=== PATIENT | male | born 1975 | race Caucasian/White ===

== ENCOUNTER 2016-09-11 11:30 | Emergency (ER) | payer OTHER ==
[~2016-09-11] VITALS: Ht 182.9 cm; Wt 100.0 kg
[~2016-09-11 11:30] MED LIST: CIPR500T4 PO; DOCU1CAP39 PO; KETO10 PO; PERC5TAB12 PO; TAMS0.4C67 PO
[2016-09-11 11:31] VITALS: BP 236/144; PULSE 89; RESP 15; TEMP 98; O2SAT 99
[2016-09-11 12:04] VITALS: BP 200/125; PULSE 95; RESP 18; O2SAT 97
[2016-09-11] MEDS ORDERED: SODIUM CHLOR 0.9% 1000 ML INJ 1,000 ML IV ONE (12:11)
[2016-09-11] MEDS ORDERED: PROCHLORPERAZINE INJ 10 MG/2 ML VIAL IVP ONE (12:15)
[2016-09-11] MEDS ORDERED: SODIUM CHLORIDE 0.9% FLUSH 10 ML FLUSH IVF PRN (12:15)
[2016-09-11] MEDS ORDERED: diphenhydrAMINE HCL 50 MG/ML VIAL IVP ONE (12:15)
--- NOTE | 2016-09-11 12:16 | PD ---
HPI Chief Complaint: Hypertension Time Seen by Provider: 12:12 Travel History International Travel<30 days: No Contact w/Intl Traveler<30days: No Traveled to known affect area: No History of Present Illness HPI 40-year-old male presents to the emergency department for evaluation of headache that started on Sunday. He states this started and gradually worsened. He does report associated photophobia, but not photophobia. Patient currently rates headaches is/10. He states he has taken ibuprofen at home for the headache, was not taking anything today. Patient denies any weakness. No chest pain or shortness of breath. No abdominal pain. No nausea, vomiting, diarrhea. She denies history of headaches. He states he has had hypertension in the past, but does not follow up with a physician. Patient states had hypertension approximately 10 years ago when he went to his primary care physician's office, but has not been back and does not take any medications. Patient denies any visual changes. No dizziness or syncope. PFSH Past Medical History Cancer: No Cardiovascular Problems: Yes Diverticulitis: Yes Endocrine: No Gastrointestinal Disorders: Yes (DIVERTICULITIS) Genitourinary: Yes Hypertension: Yes Immune Disorder: No Inguinal Hernia: Yes (surg repair) Kidney Stones: Yes Musculoskeletal: No Neurologic: No Psychiatric: No Reproductive: No Respiratory: No Past Surgical History Abdominal Surgery: Yes (HERNIA REPAIR) Other Surgery: Yes (RIGHT THUMB) Social History Alcohol Use: Yes (most days, few beers) Tobacco Use: Yes (1.5 PPD) Substance Use: No Allergies-Medications (Allergen,Severity, Reaction): Coded Allergies: No Known Allergies (Unverified , 09/11/16) Reported Meds & Prescriptions Reported Meds & Active Scripts Active Amlodipine (Amlodipine Besylate) 10 Mg Tab 10 Mg PO DAILY Review of Systems Except as stated in HPI: all other systems reviewed are Neg Physical Exam Narrative GENERAL: Well-nourished, well-developed male patient, afebrile. SKIN: Focused skin assessment warm/dry. HEAD: Normocephalic. Atraumatic. EYES: No scleral icterus. No injection or drainage. NECK: Supple, trachea midline. No JVD or lymphadenopathy. CARDIOVASCULAR: Regular rate and rhythm without murmurs, gallops, or rubs. RESPIRATORY: Breath sounds equal bilaterally. No accessory muscle use. Lungs sounds are clear to auscultation GASTROINTESTINAL: Abdomen soft, non-tender, nondistended. MUSCULOSKELETAL: No cyanosis, or edema. Bilateral upper and lower extremity strength 5/5. All extremities are neurovascularly intact. BACK: Nontender without obvious deformity. No CVA tenderness. NEUROLOGICAL: Awake and alert. Cranial nerves II through XII intact. Motor and sensory grossly within normal limits. Five out of 5 muscle strength in all muscle groups. Normal speech. Finger to nose is normal bilaterally. Heel-to- [place] is normal bilaterally. Data Data Last Documented VS Vital Signs Date Time Temp Pulse Resp B/P Pulse Ox O2 Delivery O2 Flow Rate FiO2 09/11/16 13:14 65 18 170/111 99 Room Air 09/11/16 11:31 98.0 Orders Electrocardiogram (09/11/16 ) Complete Blood Count With Diff (09/11/16 12:11) Basic Metabolic Panel (Bmp) (09/11/16 12:11) Ct Brain W/O Iv Contrast(Rout) (09/11/16 12:11) Ecg Monitoring (09/11/16 12:11) Iv Access Insert/Monitor (09/11/16 12:11) Oximetry (09/11/16 12:11) Sodium Chloride 0.9% Flush (Ns Flush) (09/11/16 12:15) Prochlorperazine Inj (Compazine Inj) (09/11/16 12:15) Diphenhydramine Inj (Benadryl Inj) (09/11/16 12:15) Sodium Chlor 0.9% 1000 Ml Inj (Ns 1000 M (09/11/16 12:11) Hydralazine Inj (Apresoline Inj) (09/11/16 13:00) Labs Laboratory Tests Test 09/11/16 12:27 White Blood Count 8.8 TH/MM3 Red Blood Count 5.51 MIL/MM3 Hemoglobin 17.0 GM/DL Hematocrit 50.2 % Mean Corpuscular Volume 91.1 FL Mean Corpuscular Hemoglobin 30.8 PG Mean Corpuscular Hemoglobin 33.9 % Concent Red Cell Distribution Width 13.1 % Platelet Count 212 TH/MM3 Mean Platelet Volume 8.5 FL Neutrophils (%) (Auto) 63.6 % Lymphocytes (%) (Auto) 29.3 % Monocytes (%) (Auto) 5.4 % Eosinophils (%) (Auto) 0.3 % Basophils (%) (Auto) 1.4 % Neutrophils # (Auto) 5.6 TH/MM3 Lymphocytes # (Auto) 2.6 TH/MM3 Monocytes # (Auto) 0.5 TH/MM3 Eosinophils # (Auto) 0.0 TH/MM3 Basophils # (Auto) 0.1 TH/MM3 CBC Comment DIFF FINAL Differential Comment Sodium Level 139 MEQ/L Potassium Level 4.0 MEQ/L Chloride Level 106 MEQ/L Carbon Dioxide Level 26.7 MEQ/L Anion Gap 6 MEQ/L Blood Urea Nitrogen 12 MG/DL Creatinine 1.07 MG/DL Estimat Glomerular Filtration 76 ML/MIN Rate Random Glucose 89 MG/DL Calcium Level 8.9 MG/DL MDM Medical Decision Making Medical Screen Exam Complete: Yes Emergency Medical Condition: Yes Medical Record Reviewed: Yes Interpretation(s) CT brain - CONCLUSION: Normal examination for a patient of this age. Differential Diagnosis Migraine headache versus cluster headache versus intracranial headache versus hypertension versus intracranial abnormality Narrative Course 40-year-old male presents to the emergency department for evaluation of headache that started on Sunday. He is also found to be hypertensive in the emergency department. EKG, CBC, BMP are ordered and pending. CT of the brain is ordered and pending. Patient is given normal saline 1 L IV bolus, Compazine 10 mg IV, Benadryl 25 mg IV. EKG shows sinus bradycardia, HR 59, no acute ST changes. CBC is unremarkable. BMP shows no acute abnormality. CT of the brain is normal. Patient's blood pressure remains elevated. Patient is given hydralazine 10 mg IV. Blood pressure recheck is 168/99. My attending physician, Dr. Rosales, is aware of all findings and agrees with plan and disposition. Patient will be discharged prescription for amlodipine for blood pressure. He is to follow-up with his primary care physician. His friend at bedside states that he will do so. Patient is stable for discharge home. He is to return for any acute worsening of symptoms. The patient was discharged in stable condition with instructions, including return instructions and follow up instructions. Diagnosis Primary Impression: Hypertension Qualified Code: I10 - Essential hypertension Additional Impression: Headache Qualified Code: R51 - Acute nonintractable headache, unspecified headache type Referrals: Primary Care Physician 2 days Patient Instructions: Acute Headache (ED), General Instructions, Hypertension ( ED) Additional Instructions: Take amlodipine as directed daily for blood pressure. Follow up with your primary care physician. Return to the emergency department for any acute, worsening of symptoms. Med/Other Pt SpecificInfo: Prescription(s) given Scripts Amlodipine 10 Mg Tab10 Mg PO DAILY #30 TAB Ref 0 Prov:Ghazala Russell 09/11/16 Disposition: 01 DISCHARGE HOME Condition: Stable Ghazala Russell Sep 11, 2016 12:16
--- NOTE | 2016-09-11 12:31 | RADRPT ---
EXAM DATE/TIME: 09/11/2016 12:20 [facility] COMPARISON: No previous studies available for comparison. INDICATIONS : Headache for one week. Bilateral tingling foot sensation. RADIATION DOSE: 56.38 CTDIvol (mGy) MEDICAL HISTORY : Hypertension. SURGICAL HISTORY : None. ENCOUNTER: Initial ACUITY: 1 day PAIN SCALE: 4/10 LOCATION: cranial TECHNIQUE: Multiple contiguous axial images were obtained of the head. Using automated exposure control and adj ustment of the mA and/or kV according to patient size, radiation dose was kept as low as reasonably a chievable to obtain optimal diagnostic quality images. DICOM format image data is available electro nically for review and comparison. FINDINGS: CEREBRUM: The ventricles are normal for age. No evidence of midline shift, mass lesion, hemorrhage or acute in farction. No extra-axial fluid collections are seen. POSTERIOR FOSSA: The cerebellum and brainstem are intact. The 4th ventricle is midline. The cerebellopontine angle i s unremarkable. EXTRACRANIAL: The visualized portion of the orbits is intact. SKULL: The calvaria is intact. No evidence of skull fracture. CONCLUSION: Normal examination for a patient of this age. Jhony Espinosa MD on September 11, 2016 at 12:28 Board Certified Radiologist. This report was verified electronically.
[2016-09-11 12:39] LABS: AUTOMATED NEUTROPHIL # 5.6 TH/MM3 (1.8-7.7); BASOPHIL # 0.1 TH/MM3 (0-0.2); BASOPHIL % 1.4 % (0.0-2.0); EOSINOPHIL % 0.3 % (0.0-4.0); HEMATOCRIT 50.2 % (39.0-51.0); HEMO FLAGS DIFF FINAL; LYMPH % 29.3 % (9.0-44.0); LYMPHOCYTE # 2.6 TH/MM3 (1.0-4.8); MEAN CELL VOLUME 91.1 FL (80.0-100.0); MEAN CORPUSCULAR HEMOGLOBIN 30.8 PG (27.0-34.0); MEAN CORPUSCULAR HGB CONC 33.9 % (32.0-36.0); MONO % 5.4 % (0.0-8.0); NEUT % 63.6 % (16.0-70.0); PLATELET COUNT 212 TH/MM3 (150-450); RED BLOOD COUNT 5.51 MIL/MM3 (4.50-5.90); RED CELL DISTRIBUTION WIDTH 13.1 % (11.6-17.2); WHITE BLOOD COUNT 8.8 TH/MM3 (4.0-11.0)
[2016-09-11 12:51] LABS: BICARBONATE 26.7 MEQ/L (21.0-32.0)
[2016-09-11] MEDS ORDERED: hydrALAZINE HCL 20 MG/ML VIAL IV PUSH ONE (13:00)
[2016-09-11 13:14] VITALS: BP 170/111; PULSE 65; RESP 18; O2SAT 99
[2016-09-11 13:20] VITALS: BP 168/99; PULSE 72; RESP 18; O2SAT 99
[2016-09-11] MEDS ORDERED: AMLO10TA2 PO (13:23)
--- NOTE | 2016-09-12 13:31 | EKG ---
Date Performed: 09/11/2016 Time Performed: 12:47:18 PTAGE: 40 years EKG: SINUS BRADYCARDIA WITH SINUS ARRHYTHMIA NONSPECIFIC T-WAVE ABNORMALITY BORDERLINE ECG NO PREVIOUS TRACING DOCTOR: Pee Lozada Interpretating Date/Time 09/12/2016 13:24:13
== END 2016-09-11 14:01 | disposition home or self-care (01) ==
LOC: NEPE 11:30
DX: I10 Essential (primary) hypertension (principal); F17.210 Nicotine dependence, cigarettes, uncomplicated; R94.31 Abnormal electrocardiogram [ECG] [EKG]
CPT/HCPCS: 70450; 80048; 85025; 93005; 96374; 96375; 99285; J0360; J0780; J1200; J7030

== ENCOUNTER 2017-01-25 19:46 | Emergency (ER) | payer OTHER ==
[~2017-01-25] VITALS: Ht 182.9 cm; Wt 110.0 kg
[~2017-01-25 19:46] MED LIST changes: +AMLO10TA2 PO; -CIPR500T4 PO; -DOCU1CAP39 PO; -KETO10 PO; -PERC5TAB12 PO; -TAMS0.4C67 PO
[2017-01-25 19:48] VITALS: BP 192/121; PULSE 79; RESP 16; TEMP 97.9; O2SAT 99
[2017-01-25] MEDS ORDERED: LIDOCAINE 2%/EPINEPHrine 1:100,000 20ML MDV NERV BLOCK ONE (20:15)
[2017-01-25] MEDS ORDERED: TETANUS/DIPHTHERIA TOXOID ADULT 0.5 ML VIAL IM ONE (20:15)
--- NOTE | 2017-01-25 20:18 | PD ---
HPI Chief Complaint: Laceration/Skin Injury Time Seen by Provider: 19:58 Travel History International Travel<30 days: No Contact w/Intl Traveler<30days: No Traveled to known affect area: No History of Present Illness HPI 41-year-old male presents to the verge department with accidental laceration to the right volar wrist. Patient states he was using a straight razor blade to remove some tinting from his truck window, when his arm slipped and the razor blade which was in his teeth accidentally cut his right arm. He denies numbness, tingling, or loss of function of the hand or wrist. His last tetanus was 7 years ago. He has no other injuries. No known drug allergies. No significant pain. PFSH Past Medical History Cancer: No Cardiovascular Problems: Yes Diverticulitis: Yes Endocrine: No Gastrointestinal Disorders: Yes (DIVERTICULITIS) Genitourinary: Yes Hypertension: Yes Immune Disorder: No Inguinal Hernia: Yes (surg repair) Implanted Vascular Access Dvce: No Kidney Stones: Yes Musculoskeletal: No Neurologic: No Psychiatric: No Reproductive: No Respiratory: No ?: Not Past Surgical History Abdominal Surgery: Yes (HERNIA REPAIR) Other Surgery: Yes (RIGHT THUMB) Social History Alcohol Use: Yes (most days, few beers) Tobacco Use: Yes (1/2 PACK A DAY ) Substance Use: No Allergies-Medications (Allergen,Severity, Reaction): Coded Allergies: No Known Allergies (Unverified Adverse Reaction, Unknown, 01/25/17) Reported Meds & Prescriptions Reported Meds & Active Scripts Active Amlodipine (Amlodipine Besylate) 10 Mg Tab 10 Mg PO DAILY Review of Systems Except as stated in HPI: all other systems reviewed are Neg General / Constitutional: No: Fever Eyes: No: Visual changes HENT: No: Headaches Cardiovascular: No: Chest Pain or Discomfort Respiratory: No: Shortness of Breath Gastrointestinal: No: Abdominal Pain Genitourinary: No: Dysuria Musculoskeletal: No: Pain Skin: Positive Other (laceration. See history present illness.), No Rash Neurologic: No: Weakness Psychiatric: No: Depression Endocrine: No: Polydipsia Hematologic/Lymphatic: No: Easy Bruising Physical Exam Narrative GENERAL: Patient appears in acute distress. SKIN: Warm and dry. Normal color. Normal turgor. Patient has a 2 cm linear laceration to the volar right wrist. It is full-thickness but does not appear to involve the underlying tissues HEAD: Atraumatic. Normocephalic. EYES: Pupils equal and round. No scleral icterus. No injection or drainage. ENT: No nasal bleeding or discharge. Mucous membranes pink and moist. Pharynx is clear. Airway is patent. NECK: Trachea midline. Supple and nontender CARDIOVASCULAR: Regular rate and rhythm. RESPIRATORY: No accessory muscle use. Clear to auscultation. Breath sounds equal bilaterally. MUSCULOSKELETAL: Extremities without clubbing, cyanosis, or edema. No obvious deformities. NEUROLOGICAL: Awake and alert. No obvious cranial nerve deficits. Motor grossly within normal limits. Five out of 5 muscle strength in the arms and legs. Normal speech. PSYCHIATRIC: Appropriate mood and affect; insight and judgment normal. Data Data Last Documented VS Vital Signs Date Time Temp Pulse Resp B/P (MAP) Pulse Ox O2 Delivery O2 Flow Rate FiO2 01/25/17 19:48 97.9 79 16 192/121 (144) 99 Room Air Orders Orders Lidocai-Epi 2%-1:100,000 Inj (Xylocaine- (01/25/17 20:15) Tetanus/Diphtheria Tox Adult (Tetanus/Di (01/25/17 20:15) MDM Medical Decision Making Medical Screen Exam Complete: Yes Emergency Medical Condition: Yes Differential Diagnosis Right wrist injury. Right wrist laceration. Need for sutures. Need for tetanus. Narrative Course Patient is given tetanus 0.5 mg IM. Laceration is repaired and dressing in place. Sutures should remain in place for 7 days. Wound care is discussed with the patient with follow-up planned in 7 days for wound check and suture removal. Patient can return sooner as needed. Procedures Procedure Narrative LACERATION LOCATION: Right volar wrist LENGTH: 2 cm NUMBER OF STITCHES/GIA: 1 vertical mattress, 2 interrupted simple REPAIR: The area of the laceration was prepped with Betadine and sterilely draped. The laceration was infiltrated with [address] 2% lidocaine with epi. The wound was copiously irrigated and explored without evidence of foreign body , tendon injury or neurovascular injury. The wound was closed using 5-0 Prolene. This was a single layer repair. A sterile dressing was applied. The patient was advised to keep the dressing clean and dry. Patient tolerated the procedure well. Diagnosis Primary Impression: Laceration of right wrist without complication Qualified Codes: S61.511A - Laceration without foreign body of right wrist, initial encounter Patient Instructions: Care For Your Stitches (ED), General Instructions, Tetanus (DC) Additional Instructions: Patient is given tetanus 0.5 mg IM. Laceration is repaired and dressing in place. Sutures should remain in place for 7 days. Wound care is discussed with the patient with follow-up planned in 7 days for wound check and suture removal. Patient can return sooner as needed. Med/Other Pt SpecificInfo: No Meds Exist/No RX given Disposition: 01 DISCHARGE HOME Condition: Stable Huebrt Zavaleta Jan 25, 2017 20:18
[2017-01-25 20:55] VITALS: BP 171/91
== END 2017-01-25 21:16 | disposition home or self-care (01) ==
LOC: NEPE 19:46
DX: S61.511A Laceration without foreign body of right wrist, initial encounter (principal); I10 Essential (primary) hypertension; F17.200 Nicotine dependence, unspecified, uncomplicated; Z87.442 Personal history of urinary calculi; Z87.19 Personal history of other diseases of the digestive system; Z23 Encounter for immunization; W26.0XXA Contact with knife, initial encounter
CPT/HCPCS: 12001; 90471; 90714